=== PATIENT | male | born 1945 | race American Indian/Alaskan Native ===

== ENCOUNTER 2017-05-16 21:34 | Inpatient (IN) | payer MEDICARE, OTHER ==
[~2017-05-16] VITALS: Ht 165.1 cm; Wt 71.6 kg
[~2017-05-16 21:34] MED LIST: ALBU8.5H8 INH; BENZ-16 PO; COMP1EAC INH; GUAI120L55 PO; SIMV40TA4 PO
[2017-05-16] MEDS ORDERED: ondansetron/PF 4mg/2ml inj IV ONE ×2 (22:15→22:20)
[2017-05-16 22:26] LABS: BASOPHILS % (AUTO) 0.4 % (0-1); EOSINOPHILS # (AUTO) 0.2 X10'3 (0-0.9); EOSINOPHILS % (AUTO) 1.9 % (0-6); HEMATOCRIT 44.1 % (42.0-52.0); HEMOGLOBIN 15.1 g/dl (14.0-17.9); LYMPHOCYTES # (AUTO) 1.8 X10'3 (1.1-4.8); LYMPHOCYTES % (AUTO) 19.7 % (21-51); MEAN CORPUSCULAR HEMOGLOBIN 32.7 PG (27.0-31.0); MEAN CORPUSCULAR HGB CONC 34.2 % (33.0-36.5); MEAN CORPUSCULAR VOLUME 95.5 FL (78-98); MEAN PLATELET VOLUME 8.1 FL (7.4-10.4); MONOCYTES # (AUTO) 0.8 X10'3 (0-0.9); MONOCYTES % (AUTO) 8.9 % (2-12); NEUTROPHILS # (AUTO) 6.5 X10'3 (1.8-7.7); NEUTROPHILS % (AUTO) 69.1 % (42-75); PLATELET COUNT 198 X10'3 (140-440); RED BLOOD COUNT 4.62 X10'6 (4.70-6.10); RED CELL DISTRIBUTION WIDTH 13.2 % (11.5-14.5); WHITE BLOOD COUNT 9.4 X10'3 (4.5-11.0)
[2017-05-16 22:33] LABS: CLARITY,URINE CLEAR (Clear); COLOR,URINE YELLOW (Yellow); GLUCOSE, URINE 100 mg/dl (Neg); KETONES,URINE NEGATIVE (Neg); LEUKOCYTE ESTERASE ,URINE NEGATIVE (Neg); NITRITES, URINE NEGATIVE (Neg); OCCULT BLOOD,URINE MODERATE (Neg); PH,URINE 6.5 (4.8-8.0); PROTEIN,URINE NEGATIVE (Neg)
[2017-05-16 22:39] LABS: ALANINE AMINOTRANSFERASE 43 U/L (12-78); ALBUMIN 3.6 G/DL (3.4-5.0); ALBUMIN/GLOBULIN RATIO 1.1 (1.1-1.5); ALKALINE PHOSPHATASE 60 IU/L (46-116); ANION GAP 7 (8-16); ASPARTATE AMINO TRANSFERASE 21 U/L (10-37); BILIRUBIN,TOTAL 0.3 MG/DL (0.1-1.0); BLOOD UREA NITROGEN 18 MG/DL (7-18); BUN/CREATININE RATIO 13.4 (5.4-32.0); CALCIUM 9.3 MG/DL (8.5-10.1); CHLORIDE 107 MMOL/L (99-107); CREATININE 1.34 MG/DL (0.60-1.10); GLUCOSE 150 MG/DL (70-104); LIPASE 197 U/L (73-393); POTASSIUM 3.8 MMOL/L (3.5-5.1); SODIUM 143 MMOL/L (135-145); eGFR 53 ML/MIN
[2017-05-16 22:42] LABS: BACTERIA,URINE NONE SEEN /HPF (Neg); SQUAMOUS EPITHELIAL CELL,UR FEW /LPF (FEW); UA COLLECTION TYPE CLN CATCH MIDSTREAM; WBC,URINE NONE SEEN /HPF (0-4)
[2017-05-16] MEDS: morphine 4 MG/ML inj SYRINge IV PRN ×2 (23:03→23:36)
[2017-05-16] MEDS ORDERED: ondansetron 4mg rapidly disintigrating tab PO ONE ×2 (23:05)
[2017-05-16] MEDS ORDERED: levoFLOXACIN-Levaquin 750MG/D5 150 ML IV STA (23:41)
[2017-05-17] MEDS: morphine 4 MG/ML inj SYRINge IV PRN ×2 (01:08→04:28)
[2017-05-17] MEDS ORDERED: morphine 4 MG/ML inj SYRINge IV PRN ×2 (01:10→22:50)
[2017-05-17] MEDS ORDERED: albuterol 2.5 MG/3 ML nebule NEB PRN (02:00)
[2017-05-17] MEDS: normal saline 1000ml 1,000 ML IV SCH ×4 (02:49→23:11)
[2017-05-17 07:25] VITALS: BP 123/73
[2017-05-17] MEDS ORDERED: LIDOcaine 1% 30ml preserv. free vial IJ STA (07:30)
[2017-05-17] MEDS: ondansetron/PF 4mg/2ml inj IV PRN ×3 (08:15→23:04)
[2017-05-17] MEDS: atorvastatin 20mg tablet PO SCH (08:24)
[2017-05-17 10:00] VITALS: BP 116/76
[2017-05-17] MEDS ORDERED: tamsulosin 0.4mg capsule PO ONE (16:30)
[2017-05-17 18:51] VITALS: BP 116/76
[2017-05-17] MEDS ORDERED: tamsulosin 0.4mg capsule PO SCH (21:00)
[2017-05-17 22:23] VITALS: BP 132/76
[2017-05-17] MEDS ORDERED: morphine 2 MG/ML inj. syringe IV PRN (22:35)
[2017-05-18 06:00] VITALS: BP 103/61
[2017-05-18] MEDS: atorvastatin 20mg tablet PO SCH (07:39)
[2017-05-18] MEDS: ondansetron/PF 4mg/2ml inj IV PRN (07:39)
[2017-05-18 10:00] VITALS: BP 131/65
[2017-05-18] MEDS ORDERED: HYDROcodone/acetaminophen 10/325mg tab PO PRN (10:00)
[2017-05-18] MEDS ORDERED: HYDR-565 PO (14:56)
[2017-05-18] MEDS ORDERED: FLO0.4C PO (14:56)
[2017-05-18] MEDS ORDERED: ONDA4TAB9 PO (15:01)
== END 2017-05-18 16:30 | disposition home or self-care (01) | DRG 694 ==
LOC: ER 21:35 → ED HOLD 05-17 01:03 → EDBEDREQ 05-17 06:02 → ORTHO 4S 05-17 07:15
PROVIDERS: ADMIT Internal Medicine; ATTEND Family Medicine
DX: N13.2 Hydronephrosis with renal and ureteral calculous obstruction (principal); E78.00 Pure hypercholesterolemia, unspecified; J45.909 Unspecified asthma, uncomplicated; Z79.899 Other long term (current) drug therapy; Z88.2 Allergy status to sulfonamides; Z87.442 Personal history of urinary calculi; Z87.891 Personal history of nicotine dependence
CPT/HCPCS: 36415; 74018; 74176; 80053; 81001; 83690; 85025; 87070; 94760; 96365; 99285; J1956; J2270; J2405; J7030

== ENCOUNTER 2021-09-12 19:30 | Emergency (ER) | payer MEDICARE, OTHER ==
[~2021-09-12] VITALS: Ht 165.1 cm; Wt 82.2 kg
[~2021-09-12 19:30] MED LIST changes: +ALBU8.5H17 INH; -ALBU8.5H8 INH; +SIMV-45 PO; -SIMV40TA4 PO
[2021-09-12] MEDS ORDERED: BEBTELOVIMAB 175 MG/2 ML VIAL IV ONE (20:50)
[2021-09-12] MEDS ORDERED: famotidine/PF 10 mg/ml inj IV PRN (20:55)
[2021-09-12] MEDS ORDERED: diphenhydrAMINE 50 mg/ml inj IV PRN (20:55)
[2021-09-12] MEDS ORDERED: epiNEPHrine 1 mg/ml inj IM PRN (20:55)
[2021-09-12] MEDS ORDERED: albuterol 2.5 MG/3 ML nebule NEB PRN (20:55)
[2021-09-12] MEDS ORDERED: hydrocortisone sod succ/PF 100mg/2ml inj. IV PRN (20:55)
[2021-09-12] MEDS ORDERED: acetaminophen 325mg tablet PO PRN (20:55)
--- NOTE | 2021-09-12 21:41 | NUR ---
assisting [employer] with pt care, pt is resting quietly on gurney, resp even and unlabored, skin p/w/d, has been medicated per order
[2021-09-12 22:43] VITALS: BP 125/76
== END 2021-09-12 22:46 | disposition home or self-care (01) ==
LOC: ER 19:32
DX: U07.1 COVID-19 (principal); J45.909 Unspecified asthma, uncomplicated; E78.00 Pure hypercholesterolemia, unspecified; Z87.442 Personal history of urinary calculi; Z88.2 Allergy status to sulfonamides; Z79.899 Other long term (current) drug therapy
CPT/HCPCS: 87502; 87503; 87811; 99285; M0222; Q0222

== ENCOUNTER 2023-08-30 14:48 | Emergency (ER) | payer MEDICARE, OTHER ==
[~2023-08-30] VITALS: Ht 165.1 cm; Wt 81.9 kg
[2023-08-30 15:51] VITALS: BP 125/98; TEMP 97.9
[2023-08-30] MEDS ORDERED: CLIN-97 PO (16:36)
[2023-08-30] MEDS ORDERED: CEPH-585 PO (16:36)
[2023-08-30 16:53] VITALS: PULSE 58; RESP 14; O2SAT 98
== END 2023-08-30 16:55 | disposition home or self-care (01) ==
LOC: ER 14:48
DX: L02.212 Cutaneous abscess of back [any part, except buttock and flank] (principal); E78.00 Pure hypercholesterolemia, unspecified; J45.909 Unspecified asthma, uncomplicated; Z88.8 Allergy status to other drugs, medicaments and biological substances; Z79.899 Other long term (current) drug therapy; Z87.442 Personal history of urinary calculi
CPT/HCPCS: 99283